=== PATIENT | male | born 1970 | race Caucasian/White ===

== ENCOUNTER 2025-01-30 12:30 | Outpatient (CLI) | payer OTHER, BC ==
[~2025-01-30 12:30] MED LIST: ATOR10TA PO; TEST200V33 IM
--- NOTE | 2025-01-30 13:49 | RADIOLOGY REPORT ---
CLINICAL INDICATION: PAIN IN LEFT KNEE, EFFUSION, LEFT KNEE TECHNIQUE: Multiplanar, multisequence MRI of the left knee was performed without contrast. Contrast: None. COMPARISON: None FINDINGS: Joint space and synovium: There is small knee joint effusion. No synovitis. No significant Grover's c yst. 15 mm T2 hyperintense structure in the posterior joint recess posterior to the PCL most compati ble with a ganglion cyst. Bones and articular cartilage: There is no evidence of acute fracture or bone marrow edema. The ali gnment is normal. There is moderate multifocal articular cartilage loss in the medial and lateral p atellar facets in the lateral femoral trochlea with osteophytes noted in the lateral femoral trochlea . There is bone marrow edema in the lateral femoral trochlea. Diffuse chondral thinning is present on both sides of the medial compartment without full-thickness chondral defect. Lateral compartment ar ticular cartilage is fairly well maintained. Menisci: There is a complex tear of the posterior horn of the medial meniscus. Posterior root appears to be partially torn. The lateral meniscus is intact aside from mild degeneration in the anterior ho rn. Tendons and ligaments: The tendons in the posterior knee are intact. The extensor mechanism is inta ct. The anterior cruciate ligament is intact. The posterior cruciate ligament is intact. The m edial collateral ligament is not torn. Mild periligamentous edema suggesting MCL sprain. The lateral collateral ligament stabilizing complex is intact. Muscles: Regional muscles are preserved in bulk and signal characteristics. Other: None. IMPRESSION: 1. Complex tear in the posterior horn of the medial meniscus of the left knee. Posterior root is part ially torn. 2. 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 3. 16 mm ganglion cyst posterior to the PCL. 4. Mild MCL sprain.
== END 2025-01-30 23:59 | disposition home or self-care (01) ==
LOC: MRI02 12:30
PROVIDERS: ATTEND Physician Assistant
DX: S83.412A Sprain of medial collateral ligament of left knee, initial encounter (principal); S83.232A Complex tear of medial meniscus, current injury, left knee, initial encounter; M22.42 Chondromalacia patellae, left knee; M67.462 Ganglion, left knee; M25.462 Effusion, left knee; M25.762 Osteophyte, left knee; M25.562 Pain in left knee; R93.7 Abnormal findings on diagnostic imaging of other parts of musculoskeletal system; X58.XXXA Exposure to other specified factors, initial encounter; Y93.89 Activity, other specified; Y92.89 Other specified places as the place of occurrence of the external cause; Y99.8 Other external cause status
CPT/HCPCS: 73721

== ENCOUNTER 2025-06-11 12:29 | Day surgery (SDC) | payer OTHER, BC ==
--- NOTE | 2025-06-06 11:25 | ELECTROCARDIOGRAPH REPORT ---
[facility] Test Date: 2025-06-06 Test Time: 11:22:35 Pat Name: VERO FRIEDMAN Department: [facility]-PRE-OP Patient ID: [facility]-[id number] Room: Gender: M Retail Service Technician: REGIS : 1970 Requested By: MAISHA CASTANEDA Order Number: [id number] Reading MD: Dr. Manasa Bolivar Measurements Intervals [place] Rate: 81 P: 15 RI: 179 QRS: -3 QRSD: 84 T: 4 QT: 337 QTc: 391 Interpretive Statements Sinus rhythm Poor R wave progression Electronically Signed On 06-06-2025 16:27:[address] Manasa Bolivar Please click the below link to view image of tracing.
[2025-06-06 11:27] LABS: MEAN PLATELET VOLUME 8.6 FL (7.4-10.4); PRE OP HEMATOCRIT 46.2 % (42.0-52.0); PRE OP HEMOGLOBIN 15.6 g/dL (14.0-17.9); PRE OP PLATELET COUNT 294 X10'3 (140-440); PRE OP WHITE BLOOD COUNT 7.3 10'3 (4.8-10.8); RED CELL DISTRIBUTION WIDTH 14.5 % (11.5-14.5)
[2025-06-06 12:42] LABS: CREATININE 1.33 MG/DL (0.60-1.10); PRE OP ALT 32 U/L (30-65); PRE OP ANION GAP 8 (8-16); PRE OP AST 27 U/L (10-37); PRE OP BILIRUB, TOTAL 0.4 MG/DL (0.0-1.0); PRE OP GLUCOSE 70 MG/DL (70-104); PRE OP POTASSIUM 4.1 MMOL/L (3.4-5.1); PRE OP SODIUM 142 MMOL/L (135-145); TOTAL CARBON DIOXIDE 29.2 MMOL/L (24-32); eGFR 56 ML/MIN
[~2025-06-11] VITALS: Ht 175.3 cm; Wt 110.1 kg
[~2025-06-11 12:29] MED LIST changes: +AMLO-379 PO; -ATOR10TA PO; +BUPIVAcaine 0.5% inj/PF 30 ML ONE; +BUPIVAcaine/PF 5 mg/ml 10ml ONE; +HYDROcodone/acetaminophen 10/325mg tab PO PRN; +LIDOcaine 1% (10mg/ml)w/preservative inj. 20ml MDV ONE; +LIDOcaine 1% W/epiNEPHrine 1:100,000 20ml vial ONE; +TADA10TA14 PO; -TEST200V33 IM; +non-formulary drug (Tadalafil 1 TAB) PO SCH
[2025-06-11 13:00] VITALS: BP 163/96; PULSE 82; RESP 16; TEMP 98.1; O2SAT 98
[2025-06-11] MEDS: ceFAZolin 2gm/dext,iso 50mL 50 ML IV ONE (13:25)
[2025-06-11] MEDS ORDERED: BUPIVAcaine/PF 5 mg/ml 10ml ONE (14:09)
[2025-06-11] MEDS ORDERED: MIDAZolam 1 MG/ML 5ML VIAL ONE (14:23)
[2025-06-11] MEDS ORDERED: fentaNYL/PF 50MCG/1 ML 2ML syringe ONE (14:23)
[2025-06-11] MEDS ORDERED: LIDOcaine 1%/PF 5ML 10 MG/ML VIAL ONE (14:48)
[2025-06-11] MEDS ORDERED: acetaminophen 1,000mg/100ml IV 100 ML IV ONE (14:54)
[2025-06-11 15:34] VITALS: BP 134/73; PULSE 80; RESP 16; O2SAT 96
[2025-06-11 15:40] VITALS: BP 143/75; PULSE 73; RESP 24; O2SAT 96
[2025-06-11 15:50] VITALS: BP 124/75; PULSE 76; RESP 15; O2SAT 97
[2025-06-11 16:00] VITALS: BP 132/93; PULSE 73; RESP 15; O2SAT 95
--- NOTE | 2025-06-11 17:38 | OPERATIVE REPORT ---
Operative Report Operative Report OPERATIVE REPORT [facility] [address] [place] [address] Date of service: June 11, 2025 PREOPERATIVE DIAGNOSIS [id number] Complex tear of medial meniscus of left knee as current injury, initial encounter M1. Arthritis of left knee POSTOPERATIVE DIAGNOSIS [id number] Complex tear of medial meniscus of left knee as current injury, initial encounter M1 Arthritis of left knee Operation Performed [id number] Arthroscopy, Knee, Meniscectomy, Med or Lat with this modifier: LT Procedure: Left knee arthroscopy with [] Surgeon: Dr. Malone Sterile Tech: None Anesthesiologist: [Dr. Carranza] Anesthetic: [Local knee block] Indications: This patient has chronic left knee pain, with findings on physical examination and MRI scan suggestive of possible meniscus tear. Findings: The medial meniscus [was normal]. The lateral meniscus [was normal]. The articular surface of the medial femoral condyle [had grade 2 chondromalacia]. The articular surface of the medial tibial plateau [had grade 2 chondromalacia]. The articular surface of the lateral femoral condyle [was pristine]. The articular surface of the lateral tibial plateau [was pristine]. The articular surface of the femoral trochlea [had grade 2 chondromalacia]. The patella [had grade 3 chondromalacia] . The anterior cruciate ligament [was normal]. The posterior cruciate ligament [was normal]. [] Procedure: The risks, benefits, expected results, and possible complications of the planned procedure had been explained to the patient and informed consent o btained. The surgical site was marked in the preoperative area. The patient was taken to the operating room where [a local knee block] anesthetic was performed. The left leg was prepped and draped in the usual sterile fashion. A timeout was taken prior to surgery confirming operative side operative site, planned procedure, administration of pre-operative antibiotics, site marking, and presence of all necessary implants and instruments. Arthroscopy was carried out through standard anteromedial, anterolateral, and superolateral portals with findings as noted above. [] Upon completion of arthroscopy the knee was irrigated thoroughly wash out any debris. Wounds were closed with Steri-Strips a sterile dressing was applied and the patient was returned to recovery room in satisfactory condition. Electronically Signed by: Tad Malone MD Doctor, Orthopedic Surgery Signed on: 06/11/2025 05:38 PM TAD MALONE MD Jun 11, 2025 17:38
== END 2025-06-11 16:44 | disposition home or self-care (01) ==
LOC: PAS 12:29
PROVIDERS: ATTEND Orthopaedic Surgery
DX: S83.232A Complex tear of medial meniscus, current injury, left knee, initial encounter (principal); S83.92XA Sprain of unspecified site of left knee, initial encounter; M25.562 Pain in left knee; M25.462 Effusion, left knee; M23.8X2 Other internal derangements of left knee; M17.12 Unilateral primary osteoarthritis, left knee; E66.9 Obesity, unspecified; I10 Essential (primary) hypertension; G47.33 Obstructive sleep apnea (adult) (pediatric); Z98.890 Other specified postprocedural states; Z79.899 Other long term (current) drug therapy; Z68.35 Body mass index [BMI] 35.0-35.9, adult; Z72.0 Tobacco use; X58.XXXA Exposure to other specified factors, initial encounter; Y93.89 Activity, other specified; Y92.89 Other specified places as the place of occurrence of the external cause; Y99.8 Other external cause status
CPT/HCPCS: 29881; 36415; 80053; 82948; 85025; 93005; J0131; J0665; J2250; J3010; J3490; J7120; Z7506; Z7508; Z7512; A4215; A4618; A6449; A7000